=== PATIENT | male | born 1965 | race Caucasian/White ===

== ENCOUNTER 2016-11-25 14:00 | Observation (INO) | payer OTHER ==
--- NOTE | 2016-11-25 14:16 | CPEKG ---
Heart Rate: 71 RR Interval: 845 P-R Interval: 176 QRSD Interval: 96 QT Interval: 376 QTC Interval: 409 P [place]: 43 QRS [place]: -54 T Wave [place]: 25 EKG Severity - ABNORMAL ECG - EKG Impression: SINUS RHYTHM EKG Impression: LEFT ANTERIOR FASCICULAR BLOCK Electronically Signed By: Kapil Tolbert 25-Nov-2016 14:30:41
[2016-11-25] MEDS ORDERED: ASPIRIN 81 MG CHEWABLE TAB PO ONE ×2 (14:25→15:19)
[2016-11-25 14:33] LABS: % IMMATURE GRANULYOCYTES 0.4 % (0.0-1.1); ABSOLUTE IMMATURE GRANULOCYTES 0.02 10^3/uL (0.00-0.10); ADD DIFF? NO; ADD MORPH? NO; ADD SCAN? NO; ATYPICAL LYMPHOCYTE FLAG 0 (0-99); FRAGMENT RBC FLAG 0 (0-99); HEMATOCRIT 45.3 % (40.0-51.0); HEMOGLOBIN 16.1 g/dL (13.7-17.5); LEFT SHIFT FLG 0 (0-99); LIPEMIA HEMOLYSIS FLAG 90 (0-99); MEAN CELL HEMOGLOBIN 32.3 pg (27.9-34.1); MEAN CELL HEMOGLOBIN CONCENTR. 35.5 g/dL (32.4-36.7); MEAN PLATELET VOLUME 9.2 fL (8.7-11.7); PLATELET CLUMPS FLAG 10 (0-99); PLATELET COUNT 97 10^3/uL (150-400); RED BLOOD CELL COUNT 4.98 10^6/uL (4.40-6.38); RED CELL DISTRIBUTION WIDTH 12.5 % (11.5-15.2)
[2016-11-25 14:44] LABS: INR 1.02 (0.83-1.16); PROTIME(PATIENT) 13.1 SEC (12.0-15.0)
[2016-11-25 14:45] LABS: ANION GAP 15 mEq/L (8-16); CALCIUM 9.1 mg/dL (8.5-10.4); CARBON DIOXIDE 23 mEq/l (22-31); CHLORIDE 102 mEq/L (97-110); CREATININE 0.9 mg/dL (0.7-1.3); GLOMERULAR FILTRATION RATE > 60; GLUCOSE 219 mg/dL (70-100); POTASSIUM 4.2 mEq/L (3.5-5.2); SODIUM 140 mEq/L (134-144)
--- NOTE | 2016-11-25 14:52 | UCPHY ---
H & P Patient Type: Established Smoking Status: Never smoked Time Seen by Provider: 11/25/16 14:25 HPI/ROS: HPI Chest pain. Shortness of breath. 51-year-old male by private vehicle with his . This patient reports that for 2 days he has had chest pain described as crampy in nature and moving from 1 part of his chest to another. He reports that it has been intermittent in nature over 2 days and it is never in 1 place at the same time. He reports that it moves from his right upper chest and radiates down through his mid chest that goes to his mid chest and mid substernal area and sometimes it is on the left side lower chest and up in his left shoulder. He reports that he had a similar episode to this about 2 years ago and it went away spontaneously. He was never worked up for this. He also reports that he has had shortness of breath when the pain is present and noticed that when he was going up the stairs earlier today at work he was more short of breath. Has a history of aplastic anemia. He also has a history of type 2 diabetes. He is not on any chemotherapeutic agents at this time. ROS: Constitutional: No fever, no chills. No weakness. Eyes: No discharge. No changes in vision. ENT: No sore throat. No nasal congestion or rhinorrhea. Respiratory: No cough. As above. Cardiac: As above, no palpitations. Gastrointestinal: No abdominal pain, no vomiting, no diarrhea. Genitourinary: No hematuria. No dysuria or increased frequency with urination. Musculoskeletal: No back pain. No neck pain. No myalgias or arthralgias. Skin: No rashes. Neurological: No headache. No focal weakness or altered sensation. Past medical history: As above. His acetone button paster is Dr. Dye. Social history: Nonsmoker. Here with his . Physical Exam: General Appearance: Alert, no distress. This patient is responding to questions appropriately and in full sentences. This patient appears well- hydrated and well-nourished. Eyes: Pupils equal and round no pallor or injection. No lid edema, erythema or injection. Respiratory: There are no retractions, lungs are clear to auscultation with good air movement bilaterally. Cardiovascular: Regular rate and rhythm. No murmur. Gastrointestinal: Abdomen is soft and nontender, no masses, bowel sounds normal. No focal tenderness at McBurney's point. No Kim sign. Neurological: Motor sensory function is grossly intact. Cranial nerves are normal. Gait is normal. Skin: Warm and dry, no rashes. Musculoskeletal: Neck is supple and nontender. Extremities are symmetrical. No calf tenderness. Negative Loki sign bilaterally. All joints range without pain or impingement. Psychiatric: No agitation. No depression. Database: EKG: EKG time is 2:50 p.m.; EKG shows a narrow complex normal sinus rhythm with a ventricular rate of 71. The PA, QRS, QT intervals are within normal limits. There are no ST-T wave changes indicative of ischemic or injury pattern. No evidence of right heart strain. Interpreted by me. Imaging: Chest x-ray AP portable; the cardiac mediastinal silhouette is unremarkable. No evidence of infiltrate or pneumothorax. No acute cardiopulmonary disease process noted. Interpreted by me. Procedures: Emergency department course: IV placed. He was placed on a monitor. EKG and chest x-ray performed and reviewed by myself. Patient states he has a contraindication to aspirin secondary to his aplastic anemia. If aspirin is warranted based on his workup will reach out to his oncologist Dr. Dye. 3:00 p.m., awaiting results of diagnostic workup. Care turned over to Dr. Golden Mitchell at this time. Differential Diagnosis: The differential diagnosis on this patient includes but is not limited to musculoskeletal chest pain, pleurisy, acute coronary syndrome, pulmonary embolism. This represents a partial list of diagnoses considered. These considerations are based on history, physical exam, past history, reassessment and diagnostic testing. (Kapil Tolbert) Past Medical/Surgical History: Family history is negative for premature coronary artery disease (Davidson Mitchell) Social History: He denies any drug use. Rare alcohol. (Davidson Mitchell) Constitutional: Initial Vital Signs Temperature (C) 36.5 C 11/25/16 14:04 Heart Rate 80 11/25/16 14:04 Respiratory Rate 17 11/25/16 14:04 Blood Pressure 160/101 H 11/25/16 14:04 O2 Sat (%) 95 11/25/16 14:04 O2 Delivery Mode Room Air Allergies/Adverse Reactions: NSAIDS (Non-Steroidal Anti-Inflamma Allergy (Verified 11/25/16 14:31) Home Medications: Medication Instructions Recorded Herbals/Supplements -Info Only 1 ea PO DAILY 11/25/16 Metformin HCl [Metformin HCl ER] 1,000 mg PO BIDMEAL 11/25/16 glipiZIDE [Glipizide] 10 mg PO BIDMEAL 11/25/16 Medical Decision Making - Diagnostics EKG Interpretation: Repeat EKG performed at 3:20 p.m. to rule out interval change in the setting of coronary syndrome reveals a sinus rhythm at 67 Intervals and axis are unchanged ST segments unchanged overall assessment sinus rhythm with left anterior fascicular block. No significant interval change from 1st EKG (Davidson Mitchell) Imaging: Chest x-ray: Poor inspiratory effort. Normal heart size and lung thorne. Chest x-ray was read by the radiologist and reviewed by myself. (Davidson Mitchell) ED Course/Re-evaluation: IV, patient refused aspirin due to aplastic anemia. He did accept 1 baby aspirin SL nitroglycerin - no relief of chest pain but did have resolution of his mild hypertension to a normotensive state the systolic in the 120s. 0.5 inch nitropaste and morphine 5 mg IV I counseled the patient regarding his elevated troponin the need for admission for further workup. He is comfortable with this plan and agreeable to admission to [facility]. I spoke with Dr. Lassiter, hospitalist who accepts the admission to the PCU. I spoke with Ilia, mid-level practitioner with [facility] and they will consult on the patient when he reaches the hospital. The patient's pain slid not resolve with nitro paste. He declines morphine. Ilia spoke with Dr. Kohli, paralegals on-call who will accept the patient directly to the CVC for cardiac catheterization given coronary syndrome with ongoing pain. Discussion: 51-year-old male with cardiac risk factor of type 2 diabetes presents with elevated troponin in the setting of chest pain without significant EKG changes consistent with coronary syndrome warranting cardiac catheterization due to ongoing symptoms despite treatment The patient accepts full dose of aspirin after I spoke with Dr. Giraldo on- call for Hematology. He declines hyper or Lovenox at this time and would like to speak with Dr. Kohli upon arrival at [address] Beta-blockers held due to pulse of 70 to a normotensive state with nitro. at 1628 EMS x-port 10 minutes away. Pt's chest discomfort 1-11/05, VS WNL. Dr. Lassiter is aware that patient will proceed to the CVC prior to going to the floor. (Davidson Mitchell) - Data Points Laboratory Results: Laboratory Results 11/25/16 14:20 11/25/16 14:20 Medications Given: Discontinued Medications Aspirin (Aspirin) 324 mg PO EDNOW ONE Stop: 11/25/16 14:26 Last Admin: 11/25/16 23:02 Dose: Not Given Aspirin (Aspirin) 81 mg PO EDNOW ONE Stop: 11/25/16 15:20 Last Admin: 11/25/16 15:35 Dose: 81 mg Sodium Chloride (Ns) 1,000 mls @ 0 mls/hr IV ONCE ONE PRN Reason: Wide Open Stop: 11/25/16 15:21 Last Admin: 11/25/16 15:20 Dose: 1,000 mls Morphine Sulfate (Morphine) 5 mg IVP EDNOW ONE Stop: 11/25/16 15:44 Last Admin: 11/25/16 23:40 Dose: Not Given Nitroglycerin (Nitro-Bid 2%) 0.5 inch TP EDNOW ONE Stop: 11/25/16 15:08 Last Admin: 11/25/16 23:40 Dose: Not Given Nitroglycerin (Nitro-Bid 2%) 1 inch TP EDNOW ONE Stop: 11/25/16 15:11 Last Admin: 11/25/16 16:02 Dose: 0.5 inch Nitroglycerin (Nitrostat) 0.4 mg SL EDNOW ONE Stop: 11/25/16 15:19 Last Admin: 11/25/16 15:28 Dose: 0.4 mg Departure - Departure Disposition: [facility] Inpatient Acute Clinical Impression: Acute coronary syndrome Clinical Impression: (Ruled Out): Chest discomfort Condition: Good - PQRS PQRS Measurement: 134: Depression screening and followup, PRIME MD-PHQ2 (12 years and older) Over the last 2 weeks, how often have you been bothered by any of the following problems? 1. Feeling down, depressed, or hopeless? 2. Little interest or pleasure in doing things? Answered no to both questions. 130: Documentation of medications. Reviewed all patient medications, doses, route and frequency. 226: Do you smoke? No. 47: 65 and older: Advanced care planning. Patient designates surrogate decision maker as spouse. 51: 18 years old and older with diagnosis of COPD, spirometry performance. NA 52: 18 years old and older with COPD and symptoms of COPD or FEV1<60% predicted prescribed a B Agonist. NA (Kapil Tolbert)
[2016-11-25 15:05] LABS: TROPONIN I 0.109 ng/mL (0-0.034)
[2016-11-25] MEDS ORDERED: NITROGLYCERIN 2% 1 GM PACKET TP ONE ×2 (15:07→15:10)
[2016-11-25] MEDS ORDERED: NITROGLYCERIN 0.4 MG BTL SL ONE (15:18)
[2016-11-25] MEDS ORDERED: NS 1,000 ML IV ONE (15:20)
--- NOTE | 2016-11-25 15:24 | CPEKG ---
Heart Rate: 67 RR Interval: 896 P-R Interval: 180 QRSD Interval: 98 QT Interval: 392 QTC Interval: 414 P [place]: 47 QRS [place]: -54 T Wave [place]: 11 EKG Severity - ABNORMAL ECG - EKG Impression: SINUS RHYTHM EKG Impression: LEFT ANTERIOR FASCICULAR BLOCK Electronically Signed By: Davidson Mitchell 25-Nov-2016 16:31:48
[2016-11-25] MEDS ORDERED: ASPIRIN 81 MG CHEWABLE TAB ONE (16:27)
[2016-11-25] MEDS ORDERED: MIDAZOLAM 2 MG/2 ML VIAL ONE (17:14)
[2016-11-25] MEDS ORDERED: IOPAMIDOL (ISOVUE-370) 150 ML BTL IV ONE (17:14)
[2016-11-25] MEDS ORDERED: VERAPAMIL 5 MG/2 ML VIAL ONE (17:14)
[2016-11-25] MEDS ORDERED: LIDOCAINE 1% 30 ML SDV ONE (17:14)
[2016-11-25] MEDS ORDERED: fentaNYL 100 MCG/2 ML INJ ONE (17:14)
[2016-11-25] MEDS ORDERED: HEPARIN 10,000 UNIT/10 ML MDV ONE (17:14)
[2016-11-25] MEDS ORDERED: BIVALIRUDIN 250 MG/5 ML VIAL IV ONE (17:21)
[2016-11-25] MEDS ORDERED: OXYCODONE/APAP 5/325 TAB PO PRN (17:59)
[2016-11-25] MEDS ORDERED: ATROPINE SULFATE 1 MG/10 ML SYR IVP PRN (17:59)
[2016-11-25] MEDS ORDERED: HYDROCODONE/APAP 5/325 TAB PO PRN (17:59)
[2016-11-25] MEDS ORDERED: ONDANSETRON 4 MG/2 ML VIAL IVP PRN ×2 (17:59→21:45)
[2016-11-25] MEDS ORDERED: NITROGLYCERIN 0.4 MG BTL SL PRN (17:59)
--- NOTE | 2016-11-25 18:03 | PDDXCAT ---
Diagnostic Cath Note - . Date: 11/25/16 Ore Washer: Seun Indication: CCC Class III and IV angina on medical treatment - Procedure Access: right wrist Procedure: left heart catheterization, coronary angiography, left ventriculogram - Materials Left Heart Cath size: 5F Left Heart Cath materials: pigtail, other ([email or web address]) - Findings-Left Heart Catheterization LM: normal LAD: normal LCX: normal RCA: dominant: Mild non-obstructive atheroma EDP: 15 mmHg LVEF: 65% Wall motion: normal Complications: none Estimated blood loss: <50ml Closure method: TR Band Assessment: Non-obstructive coronary artery disease. Normal LV function without wall motion abnormalities. Plan: Secondary prevention with statin therapy, daily asa, control of blood pressure. Patient Problems: Problems Problem Status Onset Acute coronary syndrome Acute
--- NOTE | 2016-11-25 18:08 | PDCARCONS ---
Cardiology Consult Reason for Consult: Acute coronary syndrome Chief Complaint: chest pain Requesting Physician: Stephen History of Present Illness: 51 yo diabetic male with several hour hx. of acute chest pain radiating to left arm. ER evaluation at [facility] [facility] revealed a left anterior fasicular block on ecg with elevated troponin of .1. Patient was having on -going chest pain despite medical therapy and was transported emergently to the lab tester for a diagnostic angiogram. On arrival he is still having chest pain. No nausea, vomiting, diaphoresis. Hx. of aplastic anemia. Negative syncope near syncope, PND or orthopnea. Ambulatory Orders GLIPIZIDE 11/25/16 Metformin HCl 11/25/16 History Information - Allergies/Home Medication List Allergies/Adverse Reactions: NSAIDS (Non-Steroidal Anti-Inflamma Allergy (Verified 11/25/16 14:31) Home Medications: GLIPIZIDE 11/25/16 [Last Taken Unknown] Metformin HCl 11/25/16 [Last Taken Unknown] I have personally reviewed and updated: family history, medical history, social history, surgical history - Past Medical History diabetes type 2, hypertension, hyperlipidemia - Family History Positive for: CAD - Social History Smoking Status: Never smoked Cardiac History - Cardiac History Cardiac Risk Factors: hypertension (>140/90), lipidemia, diabetes mellitus Timing/Duration: Hours Severity: moderate Severity Scale: 8 Location: substernal Activities at Onset: none Associated Symptoms: denies symptoms GOMEZ Risk Evaluation age greater or equal to 65: no greater or equal to 3 CAD risk factors: yes known CAD(stenosis greater or eqaul to 50%): no ASA use in past 7 days: yes severe angina(greater or equal to 2 episodes in 24hrs): yes EKG ST changes greater or equal to 0.5mm: no positive cardiac marker: yes Total Score: 4 GOMEZ Score: 19.9% risk Physical Exam Temp Pulse Resp BP Pulse Ox 36.5 C 87 18 151/89 H 96 11/25/16 14:04 11/25/16 16:40 11/25/16 16:40 11/25/16 16:40 11/25/16 16:40 Constitutional: uncomfortable Eyes: PERRL Ears, Nose, Mouth, Throat: moist mucous membranes Cardiovascular: regular rate and rhythym, No systolic murmur, No JVD Peripheral Pulses: 1+: femoral (R), femoral (L), 2+: carotid (R), carotid (L) Respiratory: no respiratory distress, no rales or rhonchi Gastrointestinal: normoactive bowel sounds, soft, non-tender abdomen Genitourinary: no bladder fullness Skin: warm, normal color Musculoskeletal: full muscle strength, no muscle tenderness Neurologic: AAOx3 Psychiatric: interacting appropriately, anxious Lymph, Heme, Immunologic: no cervical LAD, no supraclavicular LAD Lab and Imaging 11/25/16 14:20 11/25/16 14:20 WBC 4.86 10^3/uL (3.80-9.50) 11/25/16 14:20 RBC 4.98 10^6/uL (4.40-6.38) 11/25/16 14:20 Hgb 16.1 g/dL (13.7-17.5) 11/25/16 14:20 Hct 45.3 % (40.0-51.0) 11/25/16 14:20 MCV 91.0 fL (81.5-99.8) 11/25/16 14:20 MCH 32.3 pg (27.9-34.1) 11/25/16 14:20 MCHC 35.5 g/dL (32.4-36.7) 11/25/16 14:20 RDW 12.5 % (11.5-15.2) 11/25/16 14:20 Plt Count 97 10^3/uL (150-400) L 11/25/16 14:20 MPV 9.2 fL (8.7-11.7) 11/25/16 14:20 Neut % (Auto) 57.8 % (39.3-74.2) 11/25/16 14:20 Lymph % (Auto) 30.9 % (15.0-45.0) 11/25/16 14:20 Crosby % (Auto) 9.3 % (4.5-13.0) 11/25/16 14:20 Eos % (Auto) 1.4 % (0.6-7.6) 11/25/16 14:20 Baso % (Auto) 0.2 % (0.3-1.7) L 11/25/16 14:20 Nucleat RBC Rel Count 0.0 % (0.0-0.2) 11/25/16 14:20 Absolute Neuts (auto) 2.81 10^3/uL (1.70-6.50) 11/25/16 14:20 Absolute Lymphs (auto) 1.50 10^3/uL (1.00-3.00) 11/25/16 14:20 Absolute Monos (auto) 0.45 10^3/uL (0.30-0.80) 11/25/16 14:20 Absolute Eos (auto) 0.07 10^3/uL (0.03-0.40) 11/25/16 14:20 Absolute Basos (auto) 0.01 10^3/uL (0.02-0.10) L 11/25/16 14:20 Absolute Nucleated RBC 0.00 10^3/uL (0-0.01) 11/25/16 14:20 Immature Gran % 0.4 % (0.0-1.1) 11/25/16 14:20 Immature Gran # 0.02 10^3/uL (0.00-0.10) 11/25/16 14:20 PT 13.1 SEC (12.0-15.0) 11/25/16 14:20 INR 1.02 (0.83-1.16) 11/25/16 14:20 APTT 23.0 SEC (23.0-38.0) 11/25/16 14:20 D-Dimer < 0.27 ug/mLFEU (0.00-0.50) 11/25/16 14:18 Sodium 140 mEq/L (134-144) 11/25/16 14:20 Potassium 4.2 mEq/L (3.5-5.2) 11/25/16 14:20 Chloride 102 mEq/L (97-110) 11/25/16 14:20 Carbon Dioxide 23 mEq/l (22-31) 11/25/16 14:20 Anion Gap 15 mEq/L (8-16) 11/25/16 14:20 BUN 16 mg/dL (7-23) 11/25/16 14:20 Creatinine 0.9 mg/dL (0.7-1.3) 11/25/16 14:20 Estimated GFR > 60 11/25/16 14:20 Glucose 219 mg/dL (70-100) H 11/25/16 14:20 Calcium 9.1 mg/dL (8.5-10.4) 11/25/16 14:20 Magnesium 1.7 mg/dL (1.6-2.3) 11/25/16 14:18 Troponin I 0.109 ng/mL (0-0.034) H 11/25/16 14:20 Visualized and Interpreted EKG results: Yes A/P Assessment: 51 yo male with hyperlipidemia, hypertension, DM acute chest pain with LAFB and elevated troponin. On going pain. High risk of ACS based on GOMEZ score. Discussed anti-coagulation risks with Dr. Mccauley of [facility]. Proceed with dx angiogram/PCI if needed. Discussed with patient and . Will proceed. Plan: Dx. angiography
[2016-11-25] MEDS ORDERED: D50W 25 GM/50 ML SYR IVP PRN (21:45)
[2016-11-25] MEDS ORDERED: ACETAMINOPHEN 325 MG TAB PO PRN (21:45)
[2016-11-25] MEDS ORDERED: ONDANSETRON DISINTEGRATING 4 MG TAB PO PRN (21:45)
[2016-11-25] MEDS ORDERED: TEMAZEPAM 15 MG CAP PO PRN (21:45)
--- NOTE | 2016-11-25 21:48 | PDGENHP ---
History and Physical - Chief Complaint chest pain - History of Present Illness 51 yo male with h/o type 2 diabetes and aplastic anemia presented to urgent care with chest pain. He describes with pain as in his lateral pectoral muscles , which are tender to touch. His reports he sleeps with his arm closely tucked in front of him and he seems to clench up during sleep. He awoke this morning complaining of tenderness. He denies CP at this time. No SOB. No palpitations. No N/V/D. In urgent care, he received NTG, nitropaste and morphine and his chest discomfort persisted. His troponin was elevated at 0.1 and cardiology was contacted. Given his risk factors and persistent pain in setting of elevated troponin, he was taken for an angiogram, which revealed non-flow limiting CAD. He is admitted to the hospital for further evaluation. History Information - Allergies/Home Medication List Allergies/Adverse Reactions: NSAIDS (Non-Steroidal Anti-Inflamma Allergy (Verified 11/25/16 14:31) Home Medications: Herbals/Supplements -Info Only 1 ea PO DAILY 11/25/16 [Last Taken Unknown] Metformin HCl [Metformin HCl ER] 1,000 mg PO BIDMEAL 11/25/16 [Last Taken 18:00] glipiZIDE [Glipizide] 10 mg PO BIDMEAL 11/25/16 [Last Taken 11/24/16 18:00] I have personally reviewed and updated: family history, medical history, social history, surgical history - Past Medical History diabetes type 2, hypertension, hyperlipidemia Additional medical history: aplastic anemia, followed by Dr. yDe - Surgical History Reports: no pertinent surgical hx - Family History Positive for: CAD - Social History Smoking Status: Never smoked Alcohol Use: None Drug Use: None Additional social history: with teenage child. Review of Systems ROS: 10pt was reviewed & negative except for what was stated in HPI & below Physical Exam Temp Pulse Resp BP Pulse Ox 36.4 C 65 18 115/78 93 11/25/16 20:26 11/25/16 20:26 11/25/16 20:26 11/25/16 20:26 11/25/16 20:26 Constitutional: no apparent distress Eyes: PERRL Ears, Nose, Mouth, Throat: moist mucous membranes Cardiovascular: regular rate and rhythym, no murmur, rub, or gallop, other (+ tenderness over lateral pecs b/l) Respiratory: no respiratory distress, clear to auscultation Gastrointestinal: normoactive bowel sounds, soft, non-tender abdomen Skin: warm Musculoskeletal: full muscle strength Neurologic: AAOx3 Psychiatric: interacting appropriately Lab Data & Imaging Review 11/25/16 14:20 11/25/16 14:20 WBC 4.86 10^3/uL (3.80-9.50) 11/25/16 14:20 RBC 4.98 10^6/uL (4.40-6.38) 11/25/16 14:20 Hgb 16.1 g/dL (13.7-17.5) 11/25/16 14:20 Hct 45.3 % (40.0-51.0) 11/25/16 14:20 MCV 91.0 fL (81.5-99.8) 11/25/16 14:20 MCH 32.3 pg (27.9-34.1) 11/25/16 14:20 MCHC 35.5 g/dL (32.4-36.7) 11/25/16 14:20 RDW 12.5 % (11.5-15.2) 11/25/16 14:20 Plt Count 97 10^3/uL (150-400) L 11/25/16 14:20 MPV 9.2 fL (8.7-11.7) 11/25/16 14:20 Neut % (Auto) 57.8 % (39.3-74.2) 11/25/16 14:20 Lymph % (Auto) 30.9 % (15.0-45.0) 11/25/16 14:20 Wilkinson % (Auto) 9.3 % (4.5-13.0) 11/25/16 14:20 Eos % (Auto) 1.4 % (0.6-7.6) 11/25/16 14:20 Baso % (Auto) 0.2 % (0.3-1.7) L 11/25/16 14:20 Nucleat RBC Rel Count 0.0 % (0.0-0.2) 11/25/16 14:20 Absolute Neuts (auto) 2.81 10^3/uL (1.70-6.50) 11/25/16 14:20 Absolute Lymphs (auto) 1.50 10^3/uL (1.00-3.00) 11/25/16 14:20 Absolute Monos (auto) 0.45 10^3/uL (0.30-0.80) 11/25/16 14:20 Absolute Eos (auto) 0.07 10^3/uL (0.03-0.40) 11/25/16 14:20 Absolute Basos (auto) 0.01 10^3/uL (0.02-0.10) L 11/25/16 14:20 Absolute Nucleated RBC 0.00 10^3/uL (0-0.01) 11/25/16 14:20 Immature Gran % 0.4 % (0.0-1.1) 11/25/16 14:20 Immature Gran # 0.02 10^3/uL (0.00-0.10) 11/25/16 14:20 PT 13.1 SEC (12.0-15.0) 11/25/16 14:20 INR 1.02 (0.83-1.16) 11/25/16 14:20 APTT 23.0 SEC (23.0-38.0) 11/25/16 14:20 D-Dimer < 0.27 ug/mLFEU (0.00-0.50) 11/25/16 14:18 Sodium 140 mEq/L (134-144) 11/25/16 14:20 Potassium 4.2 mEq/L (3.5-5.2) 11/25/16 14:20 Chloride 102 mEq/L (97-110) 11/25/16 14:20 Carbon Dioxide 23 mEq/l (22-31) 11/25/16 14:20 Anion Gap 15 mEq/L (8-16) 11/25/16 14:20 BUN 16 mg/dL (7-23) 11/25/16 14:20 Creatinine 0.9 mg/dL (0.7-1.3) 11/25/16 14:20 Estimated GFR > 60 11/25/16 14:20 Glucose 219 mg/dL (70-100) H 11/25/16 14:20 Calcium 9.1 mg/dL (8.5-10.4) 11/25/16 14:20 Magnesium 1.7 mg/dL (1.6-2.3) 11/25/16 14:18 Troponin I 0.109 ng/mL (0-0.034) H 11/25/16 14:20 Assessment & Plan Assessment: Chest pain - angiogram performed on arrival, non-flow limiting CAD. D dimer negative, making PE unlikely. This pain seems consistent with a musculoskeletal origin. Discussed chest opening exercises. -Will treat CAD with ASA, statin -advised pt to discuss care home ASA use with heme/onc given his chronic thrombocytopenia (mild at 97) -Pt declines statin, check lipid panel in am for further information -Consider BB if tolerable, sbp currently 115 -appreciate cardiology assistance DM type 2 - bg 219 on arrival. Hold MTF given contrast load during angiogram. Will follow ac/hs bg's and give dose adjusted Lispro Aplastic anemia - followed by Dr. Dye. As abovev, will need to discuss safety of long-term ASA use given his associated thrombocytopenia. Thrombocytopenia - plts near baseline, no e/o bleeding or indication for transfusion Full code Dispo - obs
[2016-11-25] MEDS ORDERED: ATORVASTATIN CALCIUM 40 MG TAB PO SCH (22:00)
[2016-11-26 04:09] LABS: CHOLESTEROL 157 mg/dL (140-200); CHOLESTEROL/HDL RATIO 5.41 RATIO (1.00-4.97); HIGH DENSITY LIPOPROTEIN 29 mg/dL (40-65); LDL/HDL RATIO 2.59 RATIO (1.00-3.64); LOW DENSITY LIPOPROTEIN 75 mg/dL (70-100); NON-HIGH DENSITY LIPOPROTEIN 128 mg/dL (90-129); TRIGLYCERIDE 268 mg/dL (40-150); VERY LOW DENSITY LIPOPROTEINS 53 mg/dL (8-25)
[2016-11-26 07:55] VITALS: PULSE 75; RESP 15
[2016-11-26] MEDS ORDERED: INSULIN LISPRO 100 UNIT/ML SC SCH (08:00)
[2016-11-26] MEDS ORDERED: ASPIRIN 81 MG CHEWABLE TAB PO SCH (09:00)
[2016-11-26 10:03] LABS: HEMOGLOBIN A1C 9.8 % (4.0-6.0)
[2016-11-26 11:17] VITALS: BP 134/85; TEMP 98.1; O2SAT 93
--- NOTE | 2016-11-26 14:38 | GDS ---
DISCHARGE DIAGNOSES: 1. Musculoskeletal chest pain. 2. Nonobstructive coronary artery disease seen on coronary angiogram. 3. History of aplastic anemia. 4. History of type 2 diabetes mellitus. 5. Thrombocytopenia. 6. Low HDL. HISTORY OF PRESENT ILLNESS: This is a 51-year-old male who presented to the hospital with chest lenard n and indeterminate troponin. He was taken to the cardiac cath lab radiological technologist on 11/25/2016, at which time he was found to have no flow-limiting coronary artery disease. He is recommended to be started on aspi rin, statin, and blood pressure medicine. I did recommend a statin; however, the patient refused th is since he told me he does not believe in this medication. PHYSICAL EXAM: VITAL SIGNS: On the day of discharge, blood pressure 134/85, pulse 75, respiratory rate 15, O2 saturation 93% on room air, temperature afebrile. HEART: S1-S2. LUNGS: Clear. ABDOM EN: Soft. EXTREMITIES: No edema. PERTINENT LABS AND STUDIES: Done this hospital stay, cardiac catheterization done by Dr. Dhiraj padilla on 11/25/2016, refer to report. DISCHARGE MEDICATIONS: Please refer to discharge medication reconciliation in [facility]. DISCHARGE INSTRUCTIONS: The patient was instructed to follow up with his primary care provider next week for routine hospital followup. Once again, the statin medication was recommended, which he wa s not interested in taking. He should discuss options to increase his HDL since it is low at 29 wit h his primary care provider. He will also need further outpatient followup for his diabetes which d oes not appear to be optimally controlled with a hemoglobin A1c of 9.8. He should likely start outp atient insulin and I will defer this to his primary care provider. Copy requested to: Dr. Rosa Lopez /[id number]/MODL
== END 2016-11-26 12:23 | disposition home or self-care (01) ==
LOC: CED 14:00 → CEDHOLD 15:52 → F2W 20:24
PROVIDERS: ADMIT Hospitalist; ATTEND Family Medicine
PROC: B2111ZZ Fluoroscopy of Multiple Coronary Arteries using Low Osmolar Contrast (ICD-10-PCS; principal; 2016-11-25)
PROC: B2151ZZ Fluoroscopy of Left Heart using Low Osmolar Contrast (ICD-10-PCS; principal; 2016-11-25)
PROC: 4A023N7 Measurement of Cardiac Sampling and Pressure, Left Heart, Percutaneous Approach (ICD-10-PCS; principal; 2016-11-25)
DX: R07.89 Other chest pain (principal); D61.9 Aplastic anemia, unspecified; E11.9 Type 2 diabetes mellitus without complications; D69.6 Thrombocytopenia, unspecified
CPT/HCPCS: 71010; 93005; 93458; 96360; 99213; C1769; G0378; 80048-PO; 83735-PO; 84484-PO; 85025-PO; 85378-PO; 85610-PO; 85730-PO; G0463-PO; J0583; J1644; J1815; J2250; J3010; Q9967

== ENCOUNTER → 2018-05-26 | Outpatient (CLI) | payer OTHER | LOC: CIMAGING 09:05 | PROVIDERS: ATTEND Nurse Practitioner Family | DX: K76.0 Fatty (change of) liver, not elsewhere classified (principal); K87 Disorders of gallbladder, biliary tract and pancreas in diseases classified elsewhere | CPT/HCPCS: 76705-PO ==

== ENCOUNTER → 2018-06-13 | Outpatient (CLI) | payer OTHER | LOC: FIMAGING 08:41 | PROVIDERS: ATTEND Nurse Practitioner Family | DX: R10.11 Right upper quadrant pain (principal) | CPT/HCPCS: 78227; A9537 ==

== ENCOUNTER → 2018-06-21 | Outpatient (CLI) | payer OTHER ==
[~2018-06-21] MED LIST: IOPAMIDOL (ISOVUE-300) 100 ML BTL ONE
== END ==
LOC: CIMAGING 11:28
PROVIDERS: ATTEND Nurse Practitioner Family
DX: K76.0 Fatty (change of) liver, not elsewhere classified (principal); R74.8 Abnormal levels of other serum enzymes; M51.36 Other intervertebral disc degeneration, lumbar region; M51.37 Other intervertebral disc degeneration, lumbosacral region
CPT/HCPCS: 74177-PO; 82565-PO; Q9967

== ENCOUNTER → 2018-07-15 | Outpatient (CLI) | payer OTHER | LOC: FIMAGING 08:24 | PROVIDERS: ATTEND Psychiatry & Neurology Neurology | DX: M53.82 Other specified dorsopathies, cervical region (principal); M50.022 Cervical disc disorder at C5-C6 level with myelopathy; D75.9 Disease of blood and blood-forming organs, unspecified; M51.04 Intervertebral disc disorders with myelopathy, thoracic region; M48.062 Spinal stenosis, lumbar region with neurogenic claudication ==

== ENCOUNTER → 2018-08-08 | Outpatient (CLI) | payer OTHER | LOC: FIMAGING 08:52 | PROVIDERS: ATTEND Nurse Practitioner | DX: R93.7 Abnormal findings on diagnostic imaging of other parts of musculoskeletal system (principal) | CPT/HCPCS: 78306; A9503 ==

== ENCOUNTER → 2018-08-24 | Outpatient (CLI) | payer OTHER | LOC: FIMAGING 12:57 | PROVIDERS: ATTEND Physician Assistant | DX: M89.8X8 Other specified disorders of bone, other site (principal); M47.894 Other spondylosis, thoracic region; J84.10 Pulmonary fibrosis, unspecified; R91.1 Solitary pulmonary nodule ==

== ENCOUNTER → 2018-09-29 | Outpatient (CLI) | payer OTHER | LOC: FIMAGING 15:03 | PROVIDERS: ATTEND Physical Medicine & Rehabilitation Neuromuscular Medicine | DX: R22.2 Localized swelling, mass and lump, trunk (principal) ==